=== PATIENT | female | born 1995 | race Caucasian/White ===

== ENCOUNTER 2022-12-09 08:00 | Outpatient (CLI) | payer OTHER ==
[2022-12-09 12:19] LABS: BILIRUBIN,URINE NEGATIVE (NEGATIVE); GLUCOSE, URINE (UA) NEGATIVE (NEGATIVE); KETONES,URINE (UA) TRACE mg/dL (NEGATIVE); LEUKOCYTE ESTERASE, URINE NEGATIVE (NEGATIVE); NITRITE,URINE NEGATIVE (NEGATIVE); OCCULT BLOOD,URINE SMALL (NEGATIVE); PH,URINE 5.5 PH (5.0-7.5); PROTEIN,URINE NEGATIVE (NEGATIVE); UROBILINOGEN,URINE 0.2 (NORMAL) E.U./dL (NORMAL)
[2022-12-09 12:42] LABS: AMORPHOUS SEDIMENT,UR Moderate /LPF; BACTERIA,URINE Few /HPF (None Seen); CLARITY,URINE CLOUDY (CLEAR); RBC,URINE 0-5 /HPF (0-5); SQUAMOUS EPITHELIAL CELL,UR FEW Squamous (<= Few); WBC,URINE 0-3 /HPF (0-5)
== END 2022-12-09 23:56 | disposition home or self-care (01) ==
LOC: LAB.WC 08:00
PROVIDERS: ATTEND Nurse Practitioner
DX: Z34.90 Encounter for supervision of normal pregnancy, unspecified, unspecified trimester (principal)
CPT/HCPCS: 81001; 87077; 87086

== ENCOUNTER 2022-12-18 19:00 | Outpatient (CLI) | payer OTHER ==
--- NOTE | 2022-12-19 14:07 | Ultrasound Report ---
PROCEDURE: OB First Trimester w/TV INDICATIONS: POSITIVE TEST OUTSIDE/PRIOR DATING DATA: Last menstrual period (LMP): 08/23/2022. LMP-based estimated date of delivery (ISIS): 07/28/2023. First dating scan (date and location): 12/18/2022. Estimated date of delivery (ISIS) from first dating scan: 07/27/2023. TECHNIQUE: Real-time scanning was performed of the fetus and maternal pelvic organs, with image documentation. Endovaginal scanning was also performed to better visualize the fetus and maternal ovaries. COMPARISON: None FINDINGS: There is a single living IUP. Embryo: 1.9 cm, corresponding to gestational age 8 weeks 3 days Heart rate: There is heart tone. heart rate 180 bpm. Measurement variability in dating: +/- 4 weeks by LMP, +/- 7 days by mean sac diameter (use before 6 weeks gestation if crown-rump length not able to be measured), +/- 5 days by crown-rump length (6-12 weeks gestation). Maternal organs: Ovaries are grossly normal.. IMPRESSION: 1. A single living IUP with an estimated gestational age 8 weeks 3 days based on the current ultrasou nd, corresponding to ultrasound ISIS 07/27/2023. Ultrasound dating concordant with clinical dating. Reviewed by: Vinicius Hernández MD on 12/19/2022 2:06 PM PDT Approved by: Vinicius Hernández MD on 12/19/2022 2:06 PM PDT Station ID: [id number]
== END 2022-12-18 19:01 | disposition home or self-care (01) ==
LOC: DI 19:00
PROVIDERS: ATTEND Nurse Practitioner
DX: Z34.91 Encounter for supervision of normal pregnancy, unspecified, first trimester (principal)

== ENCOUNTER 2023-01-26 08:00 | Outpatient (CLI) | payer OTHER ==
[2023-01-26 18:54] LABS: CHLAMYDIA TRACHOMATIS DNA NEGATIVE (NEGATIVE); NEISSERIA GONORRHOEAE DNA NEGATIVE (NEGATIVE); TRICHOMONAS VAGINALIS DNA NEGATIVE (NEGATIVE)
== END 2023-01-26 23:59 | disposition home or self-care (01) ==
LOC: LAB.WC 08:00
PROVIDERS: ATTEND Nurse Practitioner
DX: O23.41 Unspecified infection of urinary tract in pregnancy, first trimester (principal)
CPT/HCPCS: 36415; 81001; 85025; 86592; 86787; 86803; 86850; 86900; 86901; 87086; 87340; 87389; 87491; 87591; 87661

== ENCOUNTER 2023-03-02 09:47 | Outpatient (CLI) | payer OTHER | END 2023-03-02 09:48 | disposition home or self-care (01) | LOC: LAB 09:47 | PROVIDERS: ATTEND Nurse Practitioner | DX: Z34.90 Encounter for supervision of normal pregnancy, unspecified, unspecified trimester (principal) | CPT/HCPCS: 36415; 86762 ==

== ENCOUNTER 2023-03-17 14:57 | Outpatient (CLI) | payer OTHER ==
--- NOTE | 2023-03-17 18:04 | Ultrasound Report ---
PROCEDURE: OB Detailed Eval INDICATIONS: SUPERVISON OF OUTSIDE/PRIOR DATING DATA: Last menstrual period (LMP): 10/21/2022. LMP-based estimated date of delivery (ISIS): 07/28/2023. First dating scan (date and location): 12/18/2022. Estimated date of delivery (ISIS) from first dating scan: 07/27/2023. The below data below was generated using the working ISIS of 07/28/2023 TECHNIQUE: Real-time scanning was performed of the fetus, with image documentation and biometric measurements. Endovaginal scanning: Not performed COMPARISON: OB ultrasound 12/18/2022 FINDINGS: General: A single living intrauterine gestation is present. Presentation: Cephalic Placenta: Placental position is anterior, without previa. Amniotic fluid index: 11.6 cm, within normal limits for gestational age. heart rate: 144 beats per minute. Maternal cervical canal: 4.2 cm long; normal length is 2.5 cm or more. biometrics: Biparietal diameter: 5.1 cm, 21 weeks 4 days Head circumference: 19.3 cm, 21 weeks 4 days Abdominal circumference: 17.5 cm, 22 weeks 3 days Femur length: 3.7 cm, 21 weeks 4 days Estimated gestational age from initial scan: 21 weeks 0 days Composite gestational age from present scan: 21 weeks 6 days Estimated weight and percentile: 465 g, 91st percentile Measurement variability in biometric dating: +/- 10 days from 12-20 weeks gestation, +/- 2 weeks from 20-30 weeks gestation, +/- 3 weeks at 30 weeks gestation or later. Anatomic survey: Neuro: Ventricles are normal at less than 10 mm. Cisterna magna is normal at 3-11 mm. Cerebellum i s normal in size and morphology. Nuchal skin fold: Normal at less than 6 mm between 14 and 20 weeks gestational age. Face: Nose and lips, facial profile are normal. Spine: No evidence for spina bifida. Heart: 4-chambered heart is present, with normal ventricular outflow tracts. A nonspecific echogenic focus is seen within the left ventricle. Diaphragm: Diaphragm is intact. Stomach: Left-sided stomach is present. Kidneys: No hydronephrosis. Normal is less than 5 mm in 2nd trimester, less than 7 mm in 3rd trimester. Cord: 3 vessel cord has orthotopic insertion. Bladder: Normal in size. Extremities: All 4 extremities are visualized. IMPRESSION: 1.Single live intrauterine . 2.Estimated weight is at the 91st percentile for clinical gestational age. 3.Echogenic focus seen in the left ventricle, which is a nonspecific finding and can be seen in up to 20% of normal fetuses, possibly representing papillary muscle or chordae tendinae. Recommend correla tion with maternal risk factors and further evaluation as clinically appropriate. 4. anatomic survey is otherwise within normal limits. Reviewed by: Matthew Powell MD on 03/17/2023 6:03 PM PDT Approved by: Matthew Powell MD on 03/17/2023 6:03 PM PDT Station ID: [id number]
== END 2023-03-17 14:58 | disposition home or self-care (01) ==
LOC: DI 14:57
PROVIDERS: ATTEND Nurse Practitioner
DX: Z34.92 Encounter for supervision of normal pregnancy, unspecified, second trimester (principal)

== ENCOUNTER 2023-04-06 17:57 | Outpatient (CLI) | payer OTHER ==
--- NOTE | 2023-04-07 12:06 | Ultrasound Report ---
PROCEDURE: OB F/U or Repeat INDICATIONS: ABN US OUTSIDE/PRIOR DATING DATA: Last menstrual period (LMP): 10/21/2022. LMP-based estimated date of delivery (ISIS): 07/28/2023. First dating scan (date and location): 12/18/2022. Estimated date of delivery (ISIS) from first dating scan: 07/27/2023. The below data below was generated using the working ISIS of 07/28/2023 TECHNIQUE: Real-time scanning was performed of the fetus, with image documentation and biometric measurements. Endovaginal scanning: Not performed. COMPARISON: OB ultrasound, 12/18/2022 and 03/17/2023. FINDINGS: General: A single living intrauterine gestation is present. Presentation: Transverse Placenta: Placental position is anterior, without previa. Amniotic fluid index: 16.9 cm, with the largest pocket measuring 5.2 cm. heart rate: 143 beats per minute. Maternal cervical canal: Closed measuring approximately 4.3 cm. biometrics: Not performed Estimated gestational age from initial scan: 23 weeks 6 days. Measurement variability in biometric dating: +/- 10 days from 12-20 weeks gestation, +/- 2 weeks from 20-30 weeks gestation, +/- 3 weeks at 30 weeks gestation or more. Other: There is an echogenic focus in the left ventricle. IMPRESSION: 1. A single living IUP redemonstrated. 2. Persistent echogenic focus in the left ventricle. This finding is nonspecific and of indeterminate clinical significance. Recommend correlation with maternal risk factors. 3. WERO 16.9 cm. Reviewed by: Vinicius Hernández MD on 04/07/2023 12:05 PM PDT Approved by: Vinicius Hernández MD on 04/07/2023 12:05 PM PDT Station ID: [id number]
== END 2023-04-06 17:58 | disposition home or self-care (01) ==
LOC: DI 17:57
PROVIDERS: ATTEND Nurse Practitioner
DX: O28.3 Abnormal ultrasonic finding on antenatal screening of mother (principal); Z36.8A Encounter for antenatal screening for other genetic defects; Z3A.23 23 weeks gestation of pregnancy

== ENCOUNTER 2023-04-27 13:34 | Outpatient (CLI) | payer OTHER ==
[2023-04-27 14:43] LABS: MEAN CORPUSCULAR HEMOGLOBIN 29.8 pg (27.0-31.0); MEAN CORPUSCULAR HGB CONC 32.3 g/dL (32.0-36.0); MEAN CORPUSCULAR VOLUME 92.3 fL (81.0-99.0); MEAN PLATELET VOLUME 9.8 fL (7.9-10.8); RED BLOOD COUNT 3.36 10^6/uL (4.20-5.40); RED CELL DISTRIBUTION WIDTH 12.4 % (12.0-15.0); WHITE BLOOD COUNT 10.8 x10^3/uL (4.8-10.8)
== END 2023-04-27 13:35 | disposition home or self-care (01) ==
LOC: LAB 13:34
PROVIDERS: ATTEND Nurse Practitioner
DX: Z34.00 Encounter for supervision of normal first pregnancy, unspecified trimester (principal)
CPT/HCPCS: 36415; 82950; 85027; 86850

== ENCOUNTER 2023-05-06 10:51 | Outpatient (CLI) | payer OTHER ==
--- NOTE | 2023-05-06 16:54 | Ultrasound Report ---
PROCEDURE: OB F/U or Repeat INDICATIONS: ABN US OUTSIDE/PRIOR DATING DATA: Last menstrual period (LMP): 10/21/2022. LMP-based estimated date of delivery (ISIS): 07/28/2023. First dating scan (date and location): Dr. Kang, 12/18/2022. Estimated date of delivery (ISIS) from first dating scan: 07/27/2023. TECHNIQUE: Real-time scanning was performed of the fetus, with image documentation and biometric measurements. Endovaginal scanning: Not performed. COMPARISON: None. FINDINGS: General: A single living intrauterine gestation is present. Presentation: Breech Placenta: Placental position is anterior, without previa. Amniotic fluid index: 20.7 cm, 89% for gestational age. heart rate: 148 beats per minute. Maternal cervical canal: 5.8 cm long; normal length is 2.5 cm or more. Estimated gestational age from initial scan: 28 weeks, 1 day Other: Echogenic cardiac focus in the left ventricle is redemonstrated. IMPRESSION: 1. Intracardiac echogenic focus as before. 2. Amniotic fluid index at 89% for gestational age. Reviewed by: Lissett Teresa MD on 05/06/2023 4:52 PM PDT Approved by: Lissett Teresa MD on 05/06/2023 4:52 PM PDT Station ID: [id number]
== END 2023-05-06 10:52 | disposition home or self-care (01) ==
LOC: DI 10:51
PROVIDERS: ATTEND Nurse Practitioner
DX: O35.BXX0 Maternal care for other (suspected) fetal abnormality and damage, fetal cardiac anomalies, not applicable or unspecified (principal); Z3A.00 Weeks of gestation of pregnancy not specified

== ENCOUNTER 2023-07-06 18:05 | Outpatient (CLI) | payer OTHER ==
--- NOTE | 2023-07-08 21:05 | Ultrasound Report ---
PROCEDURE: OB Follow up INDICATIONS: UTERINE SIZE DATE DISCREPANCY,THIRD TRIMESTER OUTSIDE/PRIOR DATING DATA: Last menstrual period (LMP): 10/21/2022. LMP-based estimated date of delivery (ISIS): 07/28/2023. First dating scan (date and location): Dr. Kang, 12/18/2022. Estimated date of delivery (ISIS) from first dating scan: 07/27/2023. Working estimated date of delivery (ISIS): 07/28/2023. TECHNIQUE: Real-time scanning was performed of the fetus, with image documentation and biometric measurements. Endovaginal scanning: Not performed. COMPARISON: OB ultrasound, 05/06/2023, 04/06/2023 and 12/18/2022. FINDINGS: General: A single living intrauterine gestation is present. Presentation: Vertex Placenta: Placental position is anterior, without previa. Amniotic fluid index: 17.5 cm, with largest pocket measuring 4.8 cm. heart rate: 127 beats per minute. Maternal cervical canal: Closed measuring 4.6 cm long; normal length is 2.5 cm or more. biometrics: Biparietal diameter: 9.45 cm; 38 weeks 4 days; 94.4% Head circumference: 34.9 cm; 40 weeks 4 days; 95.4% Abdominal circumference: 34.2 cm; 38 weeks 1 day; 90.6% Femur length: 7.02 cm; 36 weeks 0 days; 26.3% Estimated gestational age from initial scan: 36 weeks 6 days Composite gestational age from present scan: 38 weeks 2 days Estimated weight and percentile: 3357.7 g; 82.8% for gestational age Measurement variability in biometric dating: +/- 10 days from 12-20 weeks gestation, +/- 2 weeks from 20-30 weeks gestation, +/- 3 weeks at 30 weeks gestation or more. Other: Not applicable. IMPRESSION: 1. A single living IUP redemonstrated. 2. The estimated weight is at 82.8%. 3. WERO 17.5 cm. Reviewed by: Vinicius Hernández MD on 07/08/2023 9:04 PM PST Approved by: Vinicius Hernández MD on 07/08/2023 9:04 PM PST Station ID: [id number]
== END 2023-07-06 18:06 | disposition home or self-care (01) ==
LOC: DI 18:05
PROVIDERS: ATTEND Nurse Practitioner
DX: O26.843 Uterine size-date discrepancy, third trimester (principal); Z3A.38 38 weeks gestation of pregnancy

== ENCOUNTER 2023-07-09 08:00 | Outpatient (CLI) | payer OTHER | END 2023-07-09 23:59 | disposition home or self-care (01) | LOC: LAB.WC 08:00 | PROVIDERS: ATTEND Obstetrics & Gynecology | DX: Z36.85 Encounter for antenatal screening for Streptococcus B (principal) | CPT/HCPCS: 87797 ==

== ENCOUNTER 2023-07-24 12:15 | Inpatient (IN) | payer OTHER ==
[2023-07-24] MEDS ORDERED: SODIUM CHLORIDE FLUSH 0.9% 10 ML SYRINGE IVP PRN (14:11)
[2023-07-24] MEDS ORDERED: miSOPROStoL 200 MCG TABLET BC PRN (14:11)
[2023-07-24] MEDS ORDERED: TRANEXAMIC ACID IN NACL 1,000 MG/100 ML BAG IV PRN (14:11)
[2023-07-24] MEDS ORDERED: OXYTOCIN 10 UNIT/ML VIAL IM PRN (14:11)
[2023-07-24] MEDS ORDERED: CARBOPROST TROMETHAMINE 250 MCG/ML AMP IM PRN (14:11)
[2023-07-24] MEDS ORDERED: OXYTOCIN/SODIUM CHLORIDE 500 ML IV PRN (14:11)
[2023-07-24] MEDS ORDERED: lidocaine 1% 20 ML MDV ID PRN (14:11)
[2023-07-24] MEDS ORDERED: METHYLERGONOVINE 0.2 MG/ML VIAL IM PRN (14:11)
[2023-07-24] MEDS ORDERED: hydrALAZINE INJ 20 MG/ML VIAL IVP PRN ×2 (14:16)
[2023-07-24] MEDS ORDERED: LABETALOL 20 MG/4 ML SYRINGE IVP PRN ×3 (14:16)
[2023-07-24] MEDS ORDERED: NIFEdipine 10 MG CAPSULE PO PRN (14:16)
--- NOTE | 2023-07-24 14:43 | HISTORY & PHYSICAL EXAMINATION ---
Admit History - Visit Reason Visit Reason: Other - : 1 Parity: 0 Care: positive: [facility] Risk/History: positive: None, Pre-eclampsia Complications This : positive: Other (EIF on U/S) - Mother's Labs GBS: positive: Group B Step Negative - Other Maternal History Other Maternal History: 27yo G1 at 39&3 presents from clinic where she had elevated BP x2. + FM, -VB, -LOF no SANDOVAL / does have scotoma x 1 week, though not currently, and no RUQ pain. ANL: O+/abneg/RI/RPRNR/HepBneg/HIVneg/GCCTnegneg/GBSneg ANC c/b: Echogenic focus seen in the left ventricle, which is a nonspecific finding and can be seen in up to 20% of normal fetuses., possibly representing papilary muscle or chordae tendinae. anatomy otherwise WNL. After significant discussion, declined genetic screening. PMH: denies PSH: denies POB: G1 PGYN: no h/o abnormal pap no h/o STDs no h/o problems with ovaries or uterus pt with regular monthly periods, when not Meds: PNV, All: NKDA Soc: neg x3, lives with ROSETTA who is in the [employer] and happy and supportive. Fam: unremarkable GBS neg, reviewed post , support, coping mechanisms, and really leaned into ENOCH ROSETTA is "ready" to be a father. He has his career planned, is in a good place, mom is happy. He will deploy after 6 months, and will take the first 12w off to be with baby, and her mom is coming on her due date / for 3 weeks. Discussed [facility] shuttle for mom. f/u weekly, precautions reviewed. , next baby in 5 years, refilling prenatals. HEMANTH. LMP: 10/21/22 ISIS by LMP: 07/28/2023 12/19/22 / 8+3/ C/W date Final ISIS: 07/28/2022 Pre- Weight:152.4 BMI: 27.98 Blood type: O+ Antibody: negative CBC: PLT 262 HCT 36.4 HGB 12.2 RUB: 57 VZV: immune HBsAg: negative HepC: N-R RPR/AB-EIA: N-R HIV: N-R PAP:08/18/2022 GC/CT negatve HSV: denies self/partner Genetic testing: declines Covid: Pfizer, initial set; declines Flu: given 03/30/2023 RSV: 06/05/2023 FAS: 03/17/2023 EFW 465g; 91st% Cord: 3 VC Placenta: Anterior w/o previa WERO normal 50gm OGCT: 03/30 132 TDAP: Given 05/11 Breast Pump: Given 05/11 Delivery plan: Contraception: Condoms - HPI Vital Signs Temperature 98.4 F 07/24/23 12:55 Heart Rate 89 07/24/23 12:55 Respiratory Rate 16 07/24/23 12:55 Blood Pressure 122/74 07/24/23 12:55 Temperature 98.4 F 07/24/23 12:55 Heart Rate 83 07/24/23 13:15 Respiratory Rate 16 07/24/23 13:15 Blood Pressure 116/69 07/24/23 13:15 O2 Saturation 99 07/24/23 13:15 If not protocol: Oxygen Flow, liters/minute Physical - Abdominal Exam Vital Signs: Temp Pulse Resp BP Pulse Ox O2 Flow Rate 98.4 F 83 16 116/69 99 07/24/23 12:55 07/24/23 13:15 07/24/23 13:15 07/24/23 13:15 07/24/23 13:15 - Monitoring Strip Review: positive: Category I - Presentation Presentation: positive: Vertex - Vaginal Exam Membranes: positive: Membranes intact Dilation (in cm): 0 Cervical Position: positive: Posterior - Speculum Exam Speculum Exam Performed: positive: No - Other Notes Labor Progress Note/Additional Text: VS - elevated in clinic, not presently NAD Conjunctiva pink, pale sclera +S1, S2, CTAB, no increased work of breathing Abd soft, NT, ND, visibly gravid at term [place]: cephalic 7# EFM: 140mod zeb + A cells no D cells, reactive [place]: acontractile Cx: deferred -- clised and very posterior in clinic. Ext: neg CCE DTR 1+ Plan for Labor - Plan For Labor I expect patient to be DC'd or transferred within 96 hours.: Yes Plan for Labor: 27yo G1 at 39+ weeks with pre Eclampsia not in active labor Admit to L&D -- routine admission processes - consent for IOL IOL -- proceed with misoprostol -- augment with pit when indicated -- anticipate NSVE FWB cat 1, cEFM pre Eclampsia -- close care -- add mag if indicated.
[2023-07-24] MEDS: miSOPROStoL 100 MCG TABLET VG SCH (16:48)
[2023-07-25] MEDS: SODIUM CHLORIDE FLUSH 0.9% 10 ML SYRINGE IVP SCH (08:13)
--- NOTE | 2023-07-25 08:44 | PROVIDER PROGRESS NOTE ---
Labor Progress Note - Uterine Monitoring Uterine Monitoring Mode: positive: External toco Contraction Frequency (min/apart): 3 Contraction Intensity: positive: Mild Uterine Resting Tone: positive: Soft - Monitoring Monitor Mode: positive: External ultrasound Heart Rate Baseline: 130 Heart Rate Variability: positive: Moderate (6-25 bmp) Accelerations: positive: Present, 15x15 Decelerations: positive: None Strip Review: positive: Category I - Vaginal Exam Dilation (in cm): 1.5 Effacement (%): 50 Station: -3 Cervical Position: Posterior - Labor Progress Note Labor Progress Note/Additional Text: s/p 3 doses of miso FWB continues cat 1 no severe range BP, in fact all BP have been normal overnight. continue misoprostol.
--- NOTE | 2023-07-25 18:06 | PROVIDER PROGRESS NOTE ---
Labor Progress Note - Uterine Monitoring Uterine Monitoring Mode: positive: External toco Contraction Frequency (min/apart): Q2-5 Contraction Intensity: positive: Mild Uterine Resting Tone: positive: Soft - Monitoring Monitor Mode: positive: External ultrasound Heart Rate Baseline: 130 Heart Rate Variability: positive: Moderate (6-25 bmp) Accelerations: positive: Present, 15x15 Decelerations: positive: Early, Intermittent (<50% x20 min) Strip Review: positive: Category II - Vaginal Exam Dilation (in cm): 0 Effacement (%): 0 Station: -3 - Labor Progress Note Labor Progress Note/Additional Text: feeling her contractions not significant cervical change could not place geronimo with current exam will continue misoprostol throughout the night as indicated. BPs stable no signs of worsening preE FWB mostly cat 1 overall reassuring continue EFM.
--- NOTE | 2023-07-26 14:51 | PROVIDER PROGRESS NOTE ---
Labor Progress Note - Uterine Monitoring Uterine Monitoring Mode: positive: External toco Contraction Frequency (min/apart): Q4 Contraction Intensity: positive: Mild Uterine Resting Tone: positive: Soft - Monitoring Monitor Mode: positive: External ultrasound Heart Rate Baseline: 140 Heart Rate Variability: positive: Moderate (6-25 bmp) Accelerations: positive: Present, 15x15 Decelerations: positive: None - Vaginal Exam Dilation (in cm): 1 Effacement (%): 50 Station: -3 Cervical Position: Midposition - Labor Progress Note Labor Progress Note/Additional Text: has had two days of misoprostol. will switch to pitocin. no elevated BP, no SANDOVAL, no scotoma. collecting 24h urine. Will use pit to ripen cervix.
[2023-07-26] MEDS: OXYTOCIN/SODIUM CHLORIDE 500 ML IV SCH (15:47)
[2023-07-26] MEDS: LACTATED RINGERS 1,000 ML IV SCH (15:47)
[2023-07-27] MEDS: fentaNYL 100 MCG/2 ML VIAL IVP PRN (02:32)
[2023-07-27 05:49] LABS: BASOPHILS % (AUTO) 0.3 %; EOSINOPHILS % (AUTO) 0.2 %; HCT - HEMATOCRIT 37.7 % (37.0-47.0); HGB - HEMOGLOBIN 12.4 g/dL (12.0-16.0); LYMPHOCYTES # (AUTO) 1.3 10^3/uL (1.5-3.5); MEAN CORPUSCULAR HEMOGLOBIN 30.5 pg (27.0-31.0); MEAN CORPUSCULAR HGB CONC 32.9 g/dL (32.0-36.0); MEAN CORPUSCULAR VOLUME 92.6 fL (81.0-99.0); MEAN PLATELET VOLUME 10.7 fL (7.9-10.8); MONOCYTES # (AUTO) 0.6 10^3/uL (0.0-1.0); MONOCYTES % (AUTO) 4.7 %; NEUTROPHILS # (AUTO) 9.8 10^3/uL (1.5-6.6); PLT - PLATELET COUNT 241 10^3/uL (130-450); RED BLOOD COUNT 4.07 10^6/uL (4.20-5.40); RED CELL DISTRIBUTION WIDTH 15.9 % (12.0-15.0); WHITE BLOOD COUNT 11.8 x10^3/uL (4.8-10.8)
[2023-07-27 06:02] LABS: ALBUMIN 3.5 g/dL (3.2-5.5); ALBUMIN/GLOBULIN RATIO 1.4 (1.0-2.2); BILIRUBIN,TOTAL 0.5 mg/dL (0.2-1.0); CALCIUM 8.9 mg/dL (8.5-10.3); CREATININE 0.5 mg/dL (0.6-1.3); POTASSIUM 3.8 mmol/L (3.5-4.5)
[2023-07-27 07:18] LABS: TOTAL VOLUME 24HRS,URINE 1900 mL
[2023-07-27 07:26] LABS: TOTAL PROTEIN 24HR,URINE 779 mg/24hr (40-150); TOTAL PROTEIN,URINE TIMED 41 mg/dL
--- NOTE | 2023-07-27 08:50 | PROVIDER PROGRESS NOTE ---
Labor Progress Note - Uterine Monitoring Uterine Monitoring Mode: positive: External toco Contraction Frequency (min/apart): 5-7 Contraction Intensity: positive: Moderate Uterine Resting Tone: positive: Soft - Monitoring Monitor Mode: positive: External ultrasound Heart Rate Baseline: 140 Heart Rate Variability: positive: Moderate (6-25 bmp) Accelerations: positive: Present, 15x15 Decelerations: positive: None Strip Review: positive: Category I - Vaginal Exam Dilation (in cm): 2/
--- NOTE | 2023-07-27 08:53 | PROVIDER PROGRESS NOTE ---
Labor Progress Note - Uterine Monitoring Uterine Monitoring Mode: positive: External toco Contraction Frequency (min/apart): 5-7 Contraction Intensity: positive: Strong Uterine Resting Tone: positive: Soft - Monitoring Monitor Mode: positive: External ultrasound Heart Rate Baseline: 140 Heart Rate Variability: positive: Moderate (6-25 bmp) Accelerations: positive: Present, 15x15 Decelerations: positive: None Strip Review: positive: Category I - Vaginal Exam Dilation (in cm): 2 Effacement (%): 70 Station: -3 Cervical Position: Posterior - Labor Progress Note Labor Progress Note/Additional Text: Patient not getting much pain relief. Will try another dose of fentanyl while she considers epiduaral. Discussed CRB vs increasing oxytocin. Will increase oxytocin for regularl contractions. I think most of her struggling is feeling like she is not making adequare progress despite being in pain. Encouraged her that she is changing, and that the process can take quite a while sometimes. Blood pressures normal. No significant changes in labs: Still elevated protein and Alk Phosphatase.
[2023-07-27] MEDS: ONDANSETRON 4 MG/2 ML VIAL IVP PRN (13:23)
[2023-07-27] MEDS ORDERED: LIDOCAINE 2%-EPI 1:100000 20 ML MDV ONE (14:39)
[2023-07-27] MEDS ORDERED: ROPIVACAINE 0.2% 200 MG/100 ML BAG EP ONE (14:40)
--- NOTE | 2023-07-27 15:37 | ANESTHESIA ---
Pre-Anesthesia VS, & Labs - Diagnosis labor pain - Procedure labor epidural Vital Signs: Temp Pulse Resp BP Pulse Ox O2 Flow Rate 36.8 C 71 16 121/63 98 07/26/23 04:58 07/26/23 04:58 07/26/23 04:58 07/26/23 04:58 07/26/23 04:58 Height: 5 ft 2 in Weight (kg): 85.275 kg Body Mass Index: 34.4 BMI Classification: Obese - NPO Other - Is Patient ?: Yes - Lab Results Current Lab Results: Laboratory Tests 07/27/23 05:25: Sodium 134 L, Potassium 3.8, Chloride 103, Carbon Dioxide 21, Anion Gap 10.0, BUN 9, Creatinine 0.5 L, Estimated GFR (MDRD) 148, Glucose 107 H , Calcium 8.9, Total Bilirubin 0.5, AST 13, ALT 13, Alkaline Phosphatase 907 H, Total Protein 6.0 L, Albumin 3.5, Globulin 2.5, Albumin/Globulin Ratio 1.4 07/27/23 05:25: WBC 11.8 H, RBC 4.07 L, Hgb 12.4, Hct 37.7, MCV 92.6, MCH 30.5, MCHC 32.9, RDW 15.9 H, Plt Count 241, MPV 10.7, Neut # (Auto) 9.8 H, Lymph # (Auto) 1.3 L, [place] # (Auto) 0.6, Eos # (Auto) 0.0, Baso # (Auto) 0.0, Absolute Nucleated RBC 0.00, Nucleated RBC % 0.0 07/24/23 15:35: Blood Type O POSITIVE, Antibody Screen NEGATIVE Fish Bones: 07/27/23 05:25 07/27/23 05:25 Home Medications and Allergies Active Medications Carboprost Tromethamine (Carboprost Tromethamine 250 Mcg/Ml Amp) 250 mcg IM Q15M PRN PRN Reason: Step 4: Hemorrhage protocol Stop: 07/29/23 14:11 Fentanyl (Fentanyl 100 Mcg/2 Ml Vial) 50 mcg IVP Q1HR PRN PRN Reason: Severe Pain (Level 7-10) Last Admin: 07/27/23 12:39 Dose: 50 mcg Hydralazine HCl (Hydralazine Inj 20 Mg/Ml Vial) 5 - 20 mg IVP Q20M PRN; Protocol PRN Reason: SBP >160 or DBP >110 Hydralazine HCl (Hydralazine Inj 20 Mg/Ml Vial) 10 mg IVP .ONCE PRN; Protocol PRN Reason: Step 9 of Labetalol protocol Stop: 07/29/23 14:20 Lactated Ringer's (Lr) 1,000 mls @ 100 mls/hr IV .Q10H LUCIE Last Admin: 07/27/23 15:09 Dose: 100 mls/hr Oxytocin/Sodium Chloride (Pitocin/Sodium Chloride) 500 mls @ 999 mls/hr IV PRN PRN; Protocol PRN Reason: POST- HEMORR PREVENTION Stop: 07/29/23 14:11 Tranexamic Acid (Tranexamic 1,000 Mg/100ml-Nacl) 1,000 mg in 100 mls @ 600 mls/hr IV .ONCE PRN PRN Reason: EBL >1200mL and within 3hr Stop: 07/29/23 14:11 Oxytocin/Sodium Chloride (Pitocin/Sodium Chloride) 500 mls @ 1 mls/hr IV TITR LUCIE; Protocol Last Titration: 07/27/23 04:54 Dose: 3 milliunit/min, 3 mls/hr Labetalol HCl (Labetalol 20 Mg/4 Ml Syringe) 20 - 80 mg IVP Q10M PRN; Protocol PRN Reason: SBP >160 or DBP >110 Labetalol HCl (Labetalol 20 Mg/4 Ml Syringe) 20 mg IVP .ONCE PRN; Protocol PRN Reason: Step 9 of nifedipine protocol Stop: 07/29/23 14:20 Labetalol HCl (Labetalol 20 Mg/4 Ml Syringe) 40 mg IVP .ONCE PRN; Protocol PRN Reason: Step 9 of hydrALAZine protocol Stop: 07/29/23 14:20 Lidocaine HCl (Lidocaine 1% 20 Ml Mdv) 20 ml ID .ONCE PRN PRN Reason: PERINEAL REPAIR Stop: 07/29/23 14:11 Methylergonovine Maleate (Methylergonovine 0.2 Mg/Ml Vial) 0.2 mg IM .ONCE PRN PRN Reason: Step 2: Hemorrhage protocol Stop: 07/29/23 14:11 Misoprostol (Misoprostol 200 Mcg Tablet) 800 mcg BC .ONCE PRN PRN Reason: Step 3: Hemorrhage protocol Stop: 07/29/23 14:11 Misoprostol (Misoprostol 100 Mcg Tablet) 25 mcg VG Q4HR [facility] Last Admin: 07/26/23 08:35 Dose: 25 mcg Nifedipine (Nifedipine 10 Mg Capsule) 10 - 20 mg PO Q20M PRN; Protocol PRN Reason: SBP >160 or DBP >110 Ondansetron HCl (Ondansetron 4 Mg/2 Ml Vial) 4 mg IVP Q6HR PRN PRN Reason: Nausea / Vomiting Last Admin: 07/27/23 13:23 Dose: 4 mg Oxytocin (Oxytocin 10 Unit/Ml Vial) 10 unit IM .ONCE PRN PRN Reason: Step one: If no IV access Stop: 07/29/23 14:11 Sodium Chloride (Sodium Chloride Flush 0.9% 10 Ml Syringe) 10 ml IVP 0100,0900,1700 [facility] Last Admin: 07/26/23 08:36 Dose: 10 ml Sodium Chloride (Sodium Chloride Flush 0.9% 10 Ml Syringe) 10 ml IVP PRN PRN PRN Reason: NEEDED PER PROVIDER ORDERS Allergies/Adverse Reactions: Allergies Allergy/AdvReac Type Severity Reaction Status Date / Time No Known Drug Allergies Allergy Verified 07/24/23 15:31 Anes History & Medical History - Anesthetic History Anesthesia Complications: reports: No previous complications Family history of Anesthesia Complications: Denies Family history of Malignant Hyperthermia: Denies - Medical History Cardiovascular: reports: None Pulmonary: reports: None Gastrointestinal: reports: None Urinary: reports: None Neuro: reports: None Smoking Status: Never smoker - Obstetrical History : 1 Parity: 0 Events: reports: None, Pre-eclampsia Complications: reports: Other (EIF on U/S) Exam General: Alert, Oriented x3, Cooperative Dental: WNL Mouth Openin Fingerbreadth Neck Mobility: Normal Mallampati classification: II Thyromental Distance: 4-6 cm Respiratory: Lungs clear Cardiovascular: Regular rate Plan Anesthesia Type: Epidural Consent for Procedure(s) Verified and Reviewed: Yes Code Status: Attempt Resuscitation ASA classification: 2-Mild systemic disease Is this case an emergency?: No
[2023-07-27] MEDS ORDERED: NALBUPHINE 10 MG/ML AMP IVP PRN (15:38)
[2023-07-27] MEDS ORDERED: ONDANSETRON 4 MG/2 ML VIAL IVP PRN (15:38)
[2023-07-27] MEDS ORDERED: LACTATED RINGERS 500 ML IV ONE (15:38)
[2023-07-27] MEDS ORDERED: diphenhydrAMINE INJ 50 MG/ML VIAL IVP PRN (15:38)
[2023-07-27] MEDS ORDERED: NALOXONE 0.4 MG/ML VIAL IVP PRN (15:38)
[2023-07-27] MEDS ORDERED: METOCLOPRAMIDE 10 MG/2 ML VIAL IVP PRN (15:38)
[2023-07-27] MEDS ORDERED: ePHEDrine 50 MG/ML VIAL IVP PRN (15:38)
--- NOTE | 2023-07-27 17:18 | PROVIDER PROGRESS NOTE ---
Labor Progress Note - Uterine Monitoring Uterine Monitoring Mode: positive: External toco Contraction Frequency (min/apart): 2-4 - Monitoring Monitor Mode: positive: External ultrasound Heart Rate Baseline: 145 Heart Rate Variability: positive: Moderate (6-25 bmp) Accelerations: positive: Present, 15x15 Decelerations: positive: None Strip Review: positive: Category I - Vaginal Exam Dilation (in cm): 5 Effacement (%): 100 Station: -2 - Labor Progress Note Labor Progress Note/Additional Text: Patient doing much better with epidural. Still continues to labor on oxytocin. Will allow head to become more engaged and attempt amniotomy 2 hours after last check. Continue current management at this time
--- NOTE | 2023-07-27 18:29 | PROVIDER PROGRESS NOTE ---
Labor Progress Note - Uterine Monitoring Uterine Monitoring Mode: positive: External toco Contraction Frequency (min/apart): 2-3 - Monitoring Monitor Mode: positive: External ultrasound Heart Rate Baseline: 145 Heart Rate Variability: positive: Moderate (6-25 bmp) Accelerations: positive: Present, 15x15 Decelerations: positive: Late, Intermittent (<50% x20 min) Strip Review: positive: Category II - Vaginal Exam Dilation (in cm): 7 Effacement (%): 100 Station: -2 - Labor Progress Note Labor Progress Note/Additional Text: AROM performed after discussion. Moderate amount of mildly blood stained. IUPC placed as contractions early vs late and wanted better characterization.
[2023-07-27] MEDS: ROPIVACAINE 0.2% 200 MG/100 ML BAG EP PRN (22:57)
[2023-07-28] MEDS: ACETAMINOPHEN 500 MG TABLET PO PRN (01:44)
[2023-07-28] MEDS: AMPICILLIN 2 GM in SODIUM CHLORIDE 0.9% MINIBAG 100 ML IV STA (02:05)
--- NOTE | 2023-07-28 02:10 | PROVIDER PROGRESS NOTE ---
Labor Progress Note - Uterine Monitoring Uterine Monitoring Mode: positive: IUPC Contraction Frequency (min/apart): 2-3 Contraction Intensity: positive: Strong Uterine Resting Tone: positive: Soft - Monitoring Monitor Mode: positive: External ultrasound Heart Rate Baseline: 165 Heart Rate Variability: positive: Moderate (6-25 bmp) Accelerations: positive: Present, 15x15 Decelerations: positive: Early, Late, Intermittent (<50% x20 min) Strip Review: positive: Category II - Vaginal Exam Dilation (in cm): 10 Effacement (%): 100 Station: 0 - Labor Progress Note Labor Progress Note/Additional Text: Patient developed fever of 38.6 degrees and tachycardia. Presumptive diagnosis of chorioamnionitis. Start ampicillin and gentamicin. As she is pushing, anticipate 1 dose of antibiotics. Making good progress with pushing.
[2023-07-28] MEDS ORDERED: SODIUM CHLORIDE 0.9% 100ML 100 ML IV ONE (02:30)
[2023-07-28] MEDS ORDERED: GENTAMICIN 80 MG/2 ML VIAL ONE (02:35)
[2023-07-28] MEDS: GENTAMICIN 320 MG in SODIUM CHLORIDE 0.9% 100ML 100 ML IV ONE (03:16)
[2023-07-28] MEDS ORDERED: LIDOCAINE-MPF 2% 5 ML VIAL ONE (05:59)
--- NOTE | 2023-07-28 06:22 | PROVIDER PROGRESS NOTE ---
Labor Progress Note - Uterine Monitoring Uterine Monitoring Mode: positive: IUPC Contraction Frequency (min/apart): 2-4 Contraction Intensity: positive: Strong - Monitoring Monitor Mode: positive: Spiral electrode Heart Rate Baseline: 130 Heart Rate Variability: positive: Moderate (6-25 bmp) Accelerations: positive: Present, 15x15 Decelerations: positive: None Strip Review: positive: Category I - Vaginal Exam Dilation (in cm): 10 Effacement (%): 100 Station: 1 - Labor Progress Note Labor Progress Note/Additional Text: Patient initially pushing well then decreased due to pain. Still +1 station. Anesthesia provider came to help with pain control. Too high for vacuum currently. Patient desires a break to get pain relief then to try pushing again. Discussed that we are at the upper limit of normal and that if we don't continue to make progress, we will need to discuss section again. Luckily, fetus remains category 1. Maternal fever resolved as well as tachycardia. Received one dose of acetaminophen, ampicillin, and gentamicin.
[2023-07-28] MEDS ORDERED: OXYTOCIN/SODIUM CHLORIDE 500 ML IV ONE (07:22)
[2023-07-28] MEDS ORDERED: LIDOCAINE 2%-EPI 1:100000 20 ML MDV ONE (07:22)
[2023-07-28] MEDS ORDERED: OXYTOCIN 10 UNIT/ML VIAL ONE (07:23)
[2023-07-28] MEDS ORDERED: SODIUM CHLORIDE 0.9% 10 ML VIAL IVP ONE ×3 (07:23→08:17)
[2023-07-28] MEDS ORDERED: ePHEDrine 50 MG/ML VIAL IVP ONE (07:26)
[2023-07-28] MEDS ORDERED: PHENYLEPHRINE HCL 0.5 MG/5 ML AMPULE ONE (07:26)
[2023-07-28] MEDS ORDERED: MORPHINE 2 MG/ML CARPUJECT IVP PRN (07:29)
[2023-07-28] MEDS ORDERED: NALOXONE 0.4 MG/ML VIAL IVP PRN (07:29)
[2023-07-28] MEDS ORDERED: ATROPINE ABBOJECT 1 MG/10 ML SYRINGE IVP PRN (07:29)
[2023-07-28] MEDS ORDERED: fentaNYL 100 MCG/2 ML VIAL IVP PRN (07:29)
[2023-07-28] MEDS ORDERED: ONDANSETRON 4 MG/2 ML VIAL IVP PRN (07:29)
[2023-07-28] MEDS ORDERED: HYDROmorphone 0.5 MG/0.5 ML SYRINGE IVP PRN (07:29)
[2023-07-28] MEDS ORDERED: METOCLOPRAMIDE 10 MG/2 ML VIAL IVP PRN (07:29)
[2023-07-28] MEDS ORDERED: ePHEDrine 50 MG/ML VIAL IVP PRN (07:29)
[2023-07-28] MEDS ORDERED: LACTATED RINGERS 1,000 ML IV SCH ×3 (08:00→10:00)
[2023-07-28] MEDS ORDERED: AZITHROMYCIN INJ 500 MG in SODIUM CHLORIDE 0.9% 250 ML IV ONE (08:00)
[2023-07-28] MEDS ORDERED: PROPOFOL 500 MG/50 ML 500 MG/50 ML VIAL ONE (08:05)
[2023-07-28] MEDS ORDERED: KETOROLAC 30 MG/ML VIAL ONE (08:12)
[2023-07-28] MEDS ORDERED: ROPIVACAINE 0.5% PF 20 ML VIAL ONE (08:15)
[2023-07-28] MEDS ORDERED: DEXAMETHASONE 10 MG/ML VIAL ONE (08:16)
--- NOTE | 2023-07-28 08:44 | PROVIDER PROGRESS NOTE ---
Labor Progress Note - Vaginal Exam Dilation (in cm): 10 Effacement (%): 100 Station: 1 - Labor Progress Note Labor Progress Note/Additional Text: Patient got some relief from anesthesia but began having significant pain again once pushing restarted. Had increasing late decelerations and patient was unable to push well. section was recommended. Risks, benefits and alternatives were discussed including but not limited to infection, bleeding that may require blood products or hysterectomy for life saving measures, injury to surrounding organs including but not limited to bowel, bladder, ureters, tubes and ovaries and/or the baby. Should injury occur it could require longer/additional surgery to repair. All questions were answered posed by patient. The patient stated understanding and desired to proceed.
--- NOTE | 2023-07-28 08:49 | OPERATIVE REPORT ---
Operative Report - General Admit Date: 07/24/23 Planned Procedure: Low-transverse section Pre-Op Diagnosis: Failure to descend, category 2 tracing Procedure Performed: Low-transverse section Post Op Diagnosis: Failure to descend, category 2 tracing - Procedure Note Primary Surgeon: Eduard Olvera MD Secondary Surgeon: SORAIDA Vides Anesthesia Provider: Kameron Ptaterson CRNA Anesthesia Technique: Spinal Pathology: None IV Fluids (mL): 1,000 Estimated Blood Loss (mL): 850 Urine Output (mL): 250 Complications: None - Other Other Information/Narrative: 39 weeks gestation Preeclampsia without severe features Chorioamnionitis Failure to descend Category 2 tracing section was recommended. Risks, benefits and alternatives were discussed including but not limited to infection, bleeding that may require blood products or hysterectomy for life saving measures, injury to surrounding organs including but not limited to bowel, bladder, ureters, tubes and ovaries and/or the baby. Should injury occur it could require longer/additional surgery to repair. The patient stated understanding and desired to proceed. All questions were answered posed by patient. Prior to being taken to the OR, 2 grams of cefazolin IV and 500 mg azithromycin IV were administered. The patient was taken to the operating room where regional anesthesia was found to be adequate. She was then prepared and draped in the usual sterile fashion in the dorsal supine position with a leftward tilt displacing the uterus. Barbour was draining to gravity. SCDs were on bilateral lower extremities. A pfannenstiel skin incision was then made with the scalpel and carried through to the underlying layer of fascia. The fascia was incised in the midline and the incision extended laterally with the Vega scissors. The superior aspect of the facial incision was then grasped with the Amelia clamps, elevated and the underlying rectus muscles dissected off sharply. Attention was then turned to the inferior aspect of this incision which in a similar fashion was grasped, elevated with the Amelia clamps and the rectus muscle dissected off sharply. The rectus muscles were in the midline. The peritoneum identified, grasped with the pick-ups and entered sharply with the Metzenbaum scissors. The peritoneal incision was then extended superiorly and inferiorly with good visualization of the bladder. The bladder blade was inserted. The vesicouterine peritoneum was identified, grasped with the pick-ups, and entered sharply with Metzenbaum scissors. This incision was then extended laterally and the bladder flap created digitally. The bladder blade was reinserted. The lower uterine segment was identified and incised in a transverse fashion with the scalpel. The uterine incision was then extended bluntly laterally. The bladder blade was removed. The fetus was in a cephalic presentation. The infants head delivered atraumatically. The anterior shoulders were delivered followed by the posterior shoulders then the remainder of the body. The infants mouth and nose were bulb suctioned. The umbilical cord was clamped times two and cut. The was handed to the pediatric team. The placenta was removed with gentle traction. Oxytocin was added to the IV fluid and was allowed to run freely. The uterus was exteriorized and cleared of all clots and debris. The uterine incision was inspected and found to be without any extensions and was repaired with 0 Vicryl in a running, locked fashion. A second imbricating layer was performed. An additional [id number] stitch was used to stop the bleeding. Upon inspection, the repaired hysterotomy was found to be hemostatic. The uterus was firm and returned to the abdomen. The gutters were cleared of all clots and debris. The peritoneum was closed with a running suture of 2-0 Vicryl. The muscle layer was examined and found to be hemostatic. The fascia w as reapproximated with 0 Vicryl in a running fashion. The subcutaneous tissue was closed with 2-0 Vicryl. The skin was closed in a subcuticular fashion with 4-0 Monocryl. Which is The patient tolerated the procedure well. Sponge, lap and needle counts were correct times three. The patient was taken to the recovery room in stable condition. I appreciate the assistance of SORAIDA Vides during this procedure, and the assistance in retraction, visualization, dissection, and overall assistance during the case were instrumental to the patient's wellbeing. APGARs: 9/9 weight:[ ]
[2023-07-28] MEDS ORDERED: OXYTOCIN/SODIUM CHLORIDE 500 ML IV PRN (09:07)
[2023-07-28] MEDS ORDERED: ONDANSETRON ODT 4 MG TABLET TL PRN (09:07)
[2023-07-28] MEDS ORDERED: SODIUM CHLORIDE FLUSH 0.9% 10 ML SYRINGE IVP PRN (09:07)
[2023-07-28] MEDS: LACTATED RINGERS 700 ML IV ONE ×2 (09:08→09:34)
--- NOTE | 2023-07-28 09:51 | ANESTHESIA POST OP EVALUATION ---
Anesthesia Post Eval - Post Anesthesia Eval Vitals: Last Vital Signs Temp 37.3 C 07/28/23 09:34 Pulse 79 07/28/23 09:34 Resp 16 07/28/23 09:34 BP 118/69 07/28/23 09:34 Pulse Ox 100 07/28/23 09:34 O2 Flow Rate CV Function Including HR & BP: Stable Pain Control: Satisfactory Nausea & Vomiting: Negative Mental Status: Baseline Respiratory Status: Airway Patent Hydration Status: Satisfactory Anesthesia Complications: None
[2023-07-28] MEDS: KETOROLAC 30 MG/ML VIAL IVP SCH (14:39)
[2023-07-28] MEDS: IBUPROFEN 600 MG TABLET PO SCH (15:02)
[2023-07-28] MEDS ORDERED: SODIUM CHLORIDE FLUSH 0.9% 10 ML SYRINGE IVP SCH (17:00)
[2023-07-28] MEDS: ACETAMINOPHEN 500 MG TABLET PO SCH (17:16)
[2023-07-28] MEDS: ceFAZolin (2G) 2 GM in SODIUM CHLORIDE 0.9% MINIBAG 100 ML IV ONE (18:06)
[2023-07-28] MEDS: DOCUSATE SODIUM 100 MG CAPSULE PO SCH (21:00)
[2023-07-29] MEDS: oxyCODONE 5 MG TABLET PO PRN (00:19)
[2023-07-29 06:07] LABS: BASOPHILS % (AUTO) 0.4 %; EOSINOPHILS % (AUTO) 0.1 %; HCT - HEMATOCRIT 27.6 % (37.0-47.0); HGB - HEMOGLOBIN 8.9 g/dL (12.0-16.0); LYMPHOCYTES % (AUTO) 8.6 %; MEAN CORPUSCULAR HEMOGLOBIN 30.4 pg (27.0-31.0); MEAN CORPUSCULAR HGB CONC 32.2 g/dL (32.0-36.0); MEAN CORPUSCULAR VOLUME 94.2 fL (81.0-99.0); MEAN PLATELET VOLUME 10.3 fL (7.9-10.8); MONOCYTES % (AUTO) 6.3 %; NEUTROPHILS % (AUTO) 83.4 %; PLT - PLATELET COUNT 185 10^3/uL (130-450); RED BLOOD COUNT 2.93 10^6/uL (4.20-5.40); RED CELL DISTRIBUTION WIDTH 16.1 % (12.0-15.0)
[2023-07-29 06:12] LABS: ABNORMAL LYMPHS % (MANUAL) 0 %
[2023-07-29 06:47] LABS: BAND NEUTROPHILS % (MANUAL) 14 %; EOSINOPHILS # (MANUAL) 0.2 10^3/uL (0-0.7); LYMPHOCYTES # (MANUAL) 1.4 10^3/uL (1.5-3.5); LYMPHOCYTES % (MANUAL) 6 %; NEUTROPHILS # (MANUAL) 21.4 10^3/uL (1.5-6.6)
[2023-07-29 06:48] LABS: DIFFERENTIAL COMMENT MANUAL DIFFERENTIAL; PLATELET ESTIMATE, MANUAL NORMAL (130-450,000) (NORMAL); RBC MORPHOLOGY (MULTIPLE) NORMAL APPEARANCE (NORMAL)
--- NOTE | 2023-07-29 21:41 | PROVIDER PROGRESS NOTE ---
Subjective - Prog Note Date Prog Note Date: 07/29/23 Prog Note Time: 17:00 - Subjective Pt reports feeling: Improved Subjective: Pt well, lochia appropriate, flori PO, + void, + flat, + ambulation Feeding going well -- breast VSS NAD Conjunctiva pink, pale sclera +S1, S2 CTAB Breasts soft, not engorged, no nipple cracking Abd soft, NT, ND Fundus firm below umbilicus INC CDI Perineum bleeding appropriate Ext: neg CCE Objective - Vital Signs/Intake & Output Vital Signs: Vital Signs x48h Temp Pulse Resp BP Pulse Ox 07/29/23 19:43 98.1 F 80 20 107/65 97 07/29/23 15:47 96.8 F L 85 16 108/57 L Intake & Output: Intake & Output 07/26/23 07/27/23 07/28/23 07/29/23 23:59 23:59 23:59 23:59 Intake Total 9.300 2770.051 1575.316 Output Total 676 17 6204 0 Balance -118.986 4995.051 -1174.684 -2049 - Lab Results Fish Bones: 07/29/23 05:40 07/27/23 05:25 Other Labs: Lab Results x24hrs 07/29/23 Range/Units 05:40 WBC 24.0 H (4.8-10.8) x10^3/uL RBC 2.93 L (4.20-5.40) 10^6/uL Hgb 8.9 L (12.0-16.0) g/dL Hct 27.6 L (37.0-47.0) % MCV 94.2 (81.0-99.0) fL MCH 30.4 (27.0-31.0) pg MCHC 32.2 (32.0-36.0) g/dL RDW 16.1 H (12.0-15.0) % Plt Count 185 (130-450) 10^3/uL MPV 10.3 (7.9-10.8) fL Neut # (Auto) Not Reportable Lymph # (Auto) Not Reportable Hanson # (Auto) Not Reportable Eos # (Auto) Not Reportable Baso # (Auto) Not Reportable Absolute Nucleated RBC Not Reportable Total Counted 100 Band Neuts % (Manual) 14 H (0 - 10) % Abnorm Lymph % (Manual) 0 % Nucleated RBC % Not Reportable Neutrophils # (Manual) 21.4 H (1.5-6.6) 10^3/uL Lymphocytes # (Manual) 1.4 L (1.5-3.5) 10^3/uL Monocytes # (Manual) 1.0 (0.0-1.0) 10^3/uL Eosinophils # (Manual) 0.2 (0-0.7) 10^3/uL Basophils # (Manual) 0.0 (0-0.1) 10^3/uL Differential Comment MANUAL DIFFERENTIAL Platelet Estimate NORMAL (130-450,000) (NORMAL) RBC Morph Micro Appear NORMAL APPEARANCE (NORMAL) Assessment/Plan - Problem List (1) Postoperative state Impression: continue to advance anticpate D/C home tomorrow (2) Arrest of descent, delivered, current hospitalization Impression: resolved s/p C/S continiue to advance doing well (3) state Impression: contoinue to advance doing well.
[2023-07-29] MEDS: SIMETHICONE CHEW 80 MG TABLET PO PRN (23:20)
[2023-07-30 09:25] VITALS: BP 112/66; O2SAT 98
[2023-07-30] MEDS: ENOXAPARIN 40 MG/0.4 ML SYRINGE SUBQ SCH (09:25)
--- NOTE | 2023-07-30 14:05 | DISCHARGE SUMMARY ---
"Discharge Summary Admit Date: 07/24/23 Discharge Date: 07/30/23 Discharging Provider: javier Primary Care Provider: mayra Cutler Status: Attempt Resuscitation Condition at Discharge: Good Discharge Disposition: 01 Home, Self Care - DIAGNOSES Admission Diagnoses: pre Eclampsia 27yo G1 at 39+ weeks with pre Eclampsia Discharge Diagnoses with Status of Each Condition: 27yo G1 at 39+ weeks with pre Eclampsia - resolved arrest of descent - resolved with 1LTCS post depression and anxiety - sending zoloft 25mg QD, discussed this. anemia - asymptomatic. - HPI History of Present Illness: Pt well, lochia appropriate, flori PO, + void, + flat, + ambulation Feeding going well -- breast Pt reports ready to go home, has safe home to return to Reviewed: discharge instructions, post- instructions, follow up instructions, precautions, precautions regarding: feeding, depression, bleeding, and anticipated post- course All questions answered Pt verbalized understanding VSS NAD Conjunctiva pink, pale sclera +S1, S2 CTAB Breasts soft, not engorged, no nipple cracking Abd soft, NT, ND Fundus firm below umbilicus INC: CDI Perineum bleeding appropriate Ext: neg CCE - CONSULTS | PROCEDURES Procedures: IOL epidural 1LTCS post operative care post care support - HOSPITAL COURSE Hospital Course: Prolonged IOL epidural pushed x 4 hours C/S for arrest of descent routine post operative and post care D/C home POD#2 with baby . - ALLERGIES Allergies/Adverse Reactions: Allergies Allergy/AdvReac Type Severity Reaction Status Date / Time No Known Drug Allergies Allergy Verified 07/24/23 15:31 - LABS Result Diagrams: 07/29/23 05:40 07/27/23 05:25 - QUALITY (Female Hip Fx Only) Was patient sent home on osteoporosis medication?: No - FOLLOW UP Follow Up: 1 week - mood check and incision check. - TIME SPENT Time Spent in Discharge (Minutes): 45"
--- NOTE | 2023-07-30 14:09 | Discharge Plan ---
Discharge Plan Problem Reviewed?: Yes Disposition: Home, Self Care Condition: Good Prescriptions: oxyCODONE [Roxicodone] 5 mg PO Q4HR PRN #1 tab PRN Reason: PAIN Docusate Sodium 100Mg Capsule [Colace 100Mg Capsule] 100 mg PO BID #30 cap Sertraline [Zoloft] 25 mg PO DAILY #60 tablet Diet: Regular Activity Restrictions: No Restrictions Shower Restrictions: No Driving Restrictions: No Instruction Topics: Childbirth Breast Care, Vaginal Incis Care, , Depression , Change Expect Parents, Checkup Well Baby Up to 1 Month, [facility] Concerns: post depression anemia post operative care Plan of Treatment: early and frequent access to care baby appt tomorrow see OBGYNs in 1 week Care Goals: continued recovery Assessment: stable and OK to D/C home No Smoking: If you smoke, Please STOP! Call for help. Follow-up with: Gunjan Long ARNP [Primary Care Provider] -
--- NOTE | 2023-07-30 14:51 | Labor Flowsheet ---
Labor Flowsheet Datetime Report Generated by CPN: 07/30/2023 14:51 Datetime: 07/28/2023 07:15 [place] Units (mmHg): 185 FHR Baseline Changes: No Baseline Change Medication Comments: pit off Datetime: 07/28/2023 06:50 Stage 2 Comments: Patient repositioned left lateral Datetime: 07/28/2023 06:34 VITAL SIGNS NBP Sys/Kaylee/Mean (mmHg): 121 : 42 : 57 Pulse: 93 LaborFlag: Labor Datetime: 07/28/2023 06:00 UTERINE ACTIVITY Monitor Mode: Internal Quality: Moderate Pattern: Normal: <= 5 Contractions in 10 Minutes Resting Tone (Palpate): Relaxed Contraction Comments: unable to assess contractions accurately due to maternal movement Datetime: 07/28/2023 05:56 Patient Position/Activity: Left Lateral Datetime: 07/28/2023 05:48 Actions for Decelerations: Hands and Knees Datetime: 07/28/2023 05:45 SpO2 (%): 98 Datetime: 07/28/2023 05:30 Frequency (min): 2-3 Duration (sec): 80-120 Datetime: 07/28/2023 05:22 STAGE 2 Pushing: Coached on Pushing Pushing Position: Pushing with Contractions Pushing Progress: Descent with Pushing Datetime: 07/28/2023 03:32 Patient Care Comments: patient requests a break from pushing Datetime: 07/28/2023 03:15 ASSESSMENT A Monitor Mode: External US FHR Baseline Rate : 150 Variability: Moderate 6-25 bpm Accelerations: 10X10 Decelerations: Early Category: Category I Datetime: 07/28/2023 02:06 Antibiotics: Ampicillin IV 2 Gm Datetime: 07/28/2023 01:25 VAGINAL EXAM Dilatation (cm): 10.0 Effacement (%): 100 Station: 0 Datetime: 07/28/2023 00:59 Monitor Interventions for FHR: Ultrasound Adjusted Datetime: 07/28/2023 00:30 [place] UNITS (Computed) Contractions in Ten Minutes: 4 IUPC Average Intensity: 60 IUPC Average Resting Tone: 5 [place] Units (mmHg): 220 Datetime: 07/28/2023 00:28 Exam by: Brenda Georgina Datetime: 07/27/2023 21:30 Temperature (C): 37.0 Datetime: 07/27/2023 19:59 Monitor Interventions for UA: IUPC Inserted Datetime: 07/27/2023 18:12 Membrane Status: Ruptured Membranes Rupture Method: Artificial Amniotic Fluid Color: Clear Amniotic Fluid Amount: Small Membrane Comments: IUPC Placed by provider Datetime: 07/27/2023 18:10 Amniotic Fluid Odor: Normal Datetime: 07/27/2023 17:49 Hygiene: Nisha Care Datetime: 07/27/2023 17:45 Communication Comments: had MD review strip Datetime: 07/27/2023 17:29 Magnesium/Antihypertensives: Ephedrine IV (mg) @ 5mg IVP Datetime: 07/27/2023 16:08 MEDICATIONS Pitocin (milliunits): Increased to @ 12 Datetime: 07/27/2023 15:30 I/O Interventions: Barbour Cath Inserted Datetime: 07/27/2023 15:26 Pain Presence: None/Denies Datetime: 07/27/2023 15:07 Epidural Procedure: Test Dose Datetime: 07/27/2023 14:52 Comments: maternal heart recorded due to mothers positioning Anesthesia Comments: cleaning site Datetime: 07/27/2023 14:51 ANESTHESIA Epidural Positioning: Sitting Datetime: 07/27/2023 14:38 PROCEDURE TIME OUT Procedure Verify: Correct Patient Identity; Correct Side and Site are Marked; Agreement on Procedur e to be Done; Correct Patient Position Datetime: 07/27/2023 13:23 Antiemetics/Antacids: Zofran (mg) @ 4mg Datetime: 07/27/2023 10:20 PAIN Pain Scale: 5 Pain Goal: 7 Datetime: 07/27/2023 07:48 COMMUNICATION Communication: Call/Page Placed to Provider Datetime: 07/27/2023 07:37 Vaginal Exam Comments: bow Datetime: 07/27/2023 07:00 Pitocin Checklist: At Least 1 Acceleration of 15 bpm x 15 Seconds in 30 Minutes or Adequate Variabi lity; No More than 5 Uterine Contractions in 10 Minutes for any 20 Minute Interval; Uterus Palpates S oft between Contractions Datetime: 07/27/2023 06:31 Stage of : Labor Respirations: 16 Datetime: 07/27/2023 04:46 Temperature Route: Oral Datetime: 07/27/2023 04:37 Analgesics/Sedatives: Fentanyl (mcg) @ Datetime: 07/26/2023 23:52 Pain Type: Contraction Pain Location: Abdomen Pain Coping: Requesting Pain Medication or Epidural Pain Assessment Comments: Nitrous Oxide begun Comfort Measures: Coaching; Family Support Datetime: 07/26/2023 22:42 Pain Relief Measures: Comfort Measures Datetime: 07/26/2023 19:40 MATERNAL ASSESSMENT Level of Consciousness: Alert DTR's/Clonus: DTRs Absent; No Clonus Headache: Denies Breath Sounds, Left: Clear and Equal Breath Sounds, Right: Clear and Equal Nausea/Vomiting: Denies RUQ Epigastric Pain: Denies Datetime: 07/26/2023 18:15 PATIENT CARE IV/Blood Work: IV Started Datetime: 07/26/2023 14:45 Strip Reviewed by: Dr. De La Vega Datetime: 07/26/2023 08:35 Cervical Ripening Agents: Cytotec @ 25
== END 2023-07-30 14:45 | disposition home or self-care (01) | DRG 786 ==
LOC: WFO 12:15 → FBP 12:18 → WFO 14:10 → FBP 14:11
PROVIDERS: ADMIT Obstetrics & Gynecology; ATTEND Obstetrics & Gynecology
PROC: 3E0DXGC Introduction of Other Therapeutic Substance into Mouth and Pharynx, External Approach (ICD-10-PCS; principal; 2023-07-24)
PROC: 3E033VJ Introduction of Other Hormone into Peripheral Vein, Percutaneous Approach (ICD-10-PCS; 2023-07-26)
PROC: 10907ZC Drainage of Amniotic Fluid, Therapeutic from Products of Conception, Via Natural or Artificial Opening (ICD-10-PCS; 2023-07-27)
PROC: 10H07YZ Insertion of Other Device into Products of Conception, Via Natural or Artificial Opening (ICD-10-PCS; 2023-07-27)
PROC: 10D00Z1 Extraction of Products of Conception, Low, Open Approach (ICD-10-PCS; 2023-07-28)
DX: O14.94 Unspecified pre-eclampsia, complicating childbirth (principal); O41.1230 Chorioamnionitis, third trimester, not applicable or unspecified; O75.2 Pyrexia during labor, not elsewhere classified; O76 Abnormality in fetal heart rate and rhythm complicating labor and delivery; Z3A.39 39 weeks gestation of pregnancy; Z37.0 Single live birth; O62.1 Secondary uterine inertia; O99.214 Obesity complicating childbirth
CPT/HCPCS: 36415; 80053; 82570; 84156; 84550; 85025; 85027; 86850; 86900; 86901; 99215; A9270; J1580; J1650; J2372; J2795; J7120; 59025

== ENCOUNTER 2023-07-24 12:18 | Outpatient (CLI) | payer OTHER ==
[2023-07-24 12:41] LABS: HCT - HEMATOCRIT 38.6 % (37.0-47.0); HGB - HEMOGLOBIN 12.5 g/dL (12.0-16.0); MEAN CORPUSCULAR HGB CONC 32.4 g/dL (32.0-36.0); MEAN CORPUSCULAR VOLUME 92.8 fL (81.0-99.0); MEAN PLATELET VOLUME 10.4 fL (7.9-10.8); RED BLOOD COUNT 4.16 10^6/uL (4.20-5.40); WHITE BLOOD COUNT 9.7 x10^3/uL (4.8-10.8)
[2023-07-24 12:57] LABS: ALBUMIN 3.7 g/dL (3.2-5.5); ALBUMIN/GLOBULIN RATIO 1.2 (1.0-2.2); BILIRUBIN,TOTAL 0.5 mg/dL (0.2-1.0); CALCIUM 9.4 mg/dL (8.5-10.3); CREATININE 0.5 mg/dL (0.6-1.3); POTASSIUM 3.7 mmol/L (3.5-4.5); TOTAL PROTEIN 6.7 g/dL (6.4-8.9); URIC ACID 1.8 mg/dL (2.3-6.6)
[2023-07-24 13:09] LABS: CREATININE,URINE 21.3 mg/dL; PROTEIN/CREATININE RATIO,URINE 0.6 (<=0.2)
== END 2023-07-24 12:19 | disposition home or self-care (01) ==
LOC: LAB 12:18
PROVIDERS: ATTEND Nurse Practitioner
DX: R03.0 Elevated blood-pressure reading, without diagnosis of hypertension (principal)
CPT/HCPCS: 36415; 80053; 82570; 84156; 84550; 85027